=== PATIENT | female | born 1965 | race American Indian/Alaskan Native ===

== ENCOUNTER 2017-08-02 12:22 | Emergency (ER) | payer OTHER ==
[2017-08-02 12:54] VITALS: BP 130/93
[2017-08-02] MEDS ORDERED: TORADOL IM ONE (14:14)
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
== END 2017-08-02 14:27 | disposition home or self-care (01) ==
LOC: ED 12:22
DX: M54.5 Low back pain (principal); I10 Essential (primary) hypertension; E11.9 Type 2 diabetes mellitus without complications; V49.49XA Driver injured in collision with other motor vehicles in traffic accident, initial encounter; Y93.89 Activity, other specified; Y92.89 Other specified places as the place of occurrence of the external cause; Y99.8 Other external cause status
CPT/HCPCS: 96372; 99283; J1885

== ENCOUNTER 2018-10-24 16:17 | Observation (INO) | payer OTHER ==
[2018-10-24] MEDS ORDERED: NACL 0.9% 1000 ML 1,000 ML ONE (16:53)
[2018-10-24] MEDS ORDERED: NACL 0.9% 1000 ML 1,000 ML IV ONE ×3 (16:59→21:49)
--- NOTE | 2018-10-24 17:04 | Emergency Department Report ---
HPI - General Chief Complaint: Abdominal Pain Time Seen by Provider: 10/24/18 16:58 - HPI HPI: Room 5 The patient is a 53-year-old female presents with chief complaint of abdominal pain. The patient states approximately one hour ago she had sudden onset of bilateral lower quadrant abdominal pain sharp in nature. Patient states she began to get dizzy and diaphoretic. The patient states that she's been in the emergency department and passed copious flatus her pain has decreased. Patient denies any history of fever nausea vomiting or diarrhea. The patient currently gets her pain score 6-7/10. The patient states she was asymptomatic until her abdominal pain began one hour ago Location: [See above] Duration: [See above] Quality: [See above] Severity: [See above] Modifying factors: [see above] Context: [see above] Mode of transportation: [not driving] ED Past Medical Hx - Past Medical History Previous Medical History?: Yes Hx Hypertension: Yes Hx Diabetes: Yes - Surgical History Past Surgical History?: Yes Additional Surgical History: left finger amputation. - Family History Family history: no significant - Social History Smoking Status: Never Smoker Substance Use Type: Alcohol (occasional) - Medications Home Medications: Home Medications Medication Instructions Recorded Confirmed Last Taken Type metFORMIN [Glucophage] 500 mg PO BID #60 tablet 07/27/14 10/24/18 Unknown Rx ED Review of Systems ROS: Stated complaint: DIZZY Other details as noted in HPI Constitutional: denies: fever Eyes: denies: eye pain ENT: denies: throat pain Respiratory: no symptoms reported Cardiovascular: denies: chest pain Endocrine: no symptoms reported Gastrointestinal: abdominal pain. denies: nausea, vomiting, diarrhea Genitourinary: denies: dysuria Musculoskeletal: denies: back pain Neurological: denies: headache Physical Exam - Physical Exam Physical Exam: GENERAL: The patient is well-developed well-nourished female lying on stretcher not appearing to be in acute distress. [] HEENT: Normocephalic. Atraumatic. Extraocular motions are intact. Patient has moist mucous membranes. NECK: Supple. Trachea midline CHEST/LUNGS: Clear to auscultation. There is no respiratory distress noted. HEART/CARDIOVASCULAR: Regular. There is no tachycardia. There is no gallop rub or murmur. ABDOMEN: Abdomen is soft, with diffuse discomfort to palpation. Patient has normal bowel sounds. There is no abdominal distention. SKIN: There is no rash. There is no edema. There is no diaphoresis. NEURO: The patient is awake, alert, and oriented. The patient is cooperative. The patient has normal speech MUSCULOSKELETAL: There is no evidence of acute injury. ED Course - Consultations Consultation #1: 10/24/18 19:34 [facility] called 10/24/18 19:49 Case discussed with [place] physician. May keep patient here at [facility] Medical Decision Making - Lab Data Result diagrams: 10/24/18 17:06 10/24/18 17:06 Laboratory Tests 10/24/18 10/24/18 10/24/18 16:47 17:06 17:06 WBC 6.7 RBC 3.99 Hgb 11.9 Hct 36.5 MCV 92 MCH 30 MCHC 33 RDW 15.5 H Plt Count 441 H Lymph % (Auto) 46.7 H Jackson % (Auto) 8.3 H Eos % (Auto) 3.7 Baso % (Auto) 0.5 Lymph # 3.1 Jackson # 0.6 Eos # 0.2 Baso # 0.0 Seg Neutrophils % 40.8 Seg Neutrophils # 2.7 PT 13.5 INR 1.06 APTT 20.9 L VBG pH Sodium Potassium Chloride Carbon Dioxide Anion Gap BUN Creatinine Estimated GFR BUN/Creatinine Ratio Glucose Calcium Total Bilirubin AST ALT Alkaline Phosphatase Total Protein Albumin Albumin/Globulin Ratio Lipase Blood Type A POSITIVE Antibody Screen Negative 10/24/18 10/24/18 17:06 17:16 WBC RBC Hgb Hct MCV MCH MCHC RDW Plt Count Lymph % (Auto) Jackson % (Auto) Eos % (Auto) Baso % (Auto) Lymph # Jackson # Eos # Baso # Seg Neutrophils % Seg Neutrophils # PT INR APTT VBG pH 7.267 L Sodium 138 Potassium 3.5 L Chloride 102.6 Carbon Dioxide 20 L Anion Gap 19 BUN 14 Creatinine 0.8 Estimated GFR > 60 BUN/Creatinine Ratio 18 Glucose 329 H Calcium 9.2 Total Bilirubin 0.20 AST 13 ALT 9 Alkaline Phosphatase 60 Total Protein 7.5 Albumin 4.0 Albumin/Globulin Ratio 1.1 Lipase 18 Blood Type Antibody Screen - Radiology Data Radiology results: report reviewed (CT abdomen and pelvis), image reviewed (CT abdomen and pelvis) [facility] [address] [place] [address] Cat Scan Report Signed Patient: JAMES DIANA MR#: [id number] : 1965 Acct:[id number] Age/Sex: 53 / F ADM Date: 10/24/18 Loc: ED Attending Dr: Ordering Physician: OSIEL TRAVIS MD Date of Service: 10/24/18 Procedure(s): CT abdomen pelvis w con Accession Number(s): [id number] cc: OSIEL TRAVIS MD CT ABDOMEN AND PELVIS WITH CONTRAST HISTORY: Lower abdominal pain COMPARISON: None TECHNIQUE: Routine abdominal and pelvic CT exam performed following intravenous contrast administration.. All CT scans at this location are performed using CT dose reduction for ALARA by means of automated exposure control. FINDINGS: The included lung bases are clear. The liver, gallbladder, spleen, adrenal glands, kidneys, and pancreas demonstrate no acute findings. However, there is a small amount free fluid in the abdomen and pelvis. There is a large heterogeneous mass in the midline lower abdomen that measures 19.9 x 7.6 cm in greatest axial dimension. It is difficult to determine the origin of this mass given its large size. The uterus does appear to be enlarged and containing multiple fibroids but it is unclear if the larger masses arising from the uterus or from the ovaries. The included osseous structures demonstrate no aggressive appearing lytic or blastic lesions. IMPRESSION: 1. Large heterogeneous mass in the midline lower abdomen extending into the pelvis. The precise origin of this mass is indeterminate. It may be a large uterine fibroid arising from the uterus but this is not definite. It could also be a large ovarian mass (especially in light of the small amount of free fluid in the abdomen). One might consider pelvic ultrasound for further characterization, although ultimately tissue sampling may be necessary to distinguish between a large uterine fibroid versus ovarian lesion. Signer Name: Hardik Echevarria MD Signed: 10/24/2018 7:03 PM Workstation Name: [id number] Transcribed By: LANDY Dictated By: Hardik Echevarria MD Electronically Authenticated By: Hardik Echevarria MD Signed Date/Time: 10/24/181902 DD/ 57 TD/TT: - Differential Diagnosis bowel perforation, aortic dissection, AAA Critical care attestation.: If time is entered above; I have spent that time in minutes in the direct care of this critically ill patient, excluding procedure time. ED Disposition Clinical Impression: Acute abdominal pain, Abdominal mass, DKA (diabetic ketoacidoses) Disposition: DC09 OP ADMIT IP TO THIS HOSP Is pt being admited?: Yes Does the pt Need Aspirin: No Condition: Fair Instructions: Diabetic Ketoacidosis (ED), Abdominal Pain (ED) Referrals: TISH CALZADABANGOR MD YEE [Primary Care Provider] - 3-5 Days Time of Disposition: 19:49 (hospitalist notified (Dr Kang))
[2018-10-24 17:24] LABS: Basophils % (Auto) 0.5 % (0.0-1.8); Eosinophils # (Auto) 0.2 K/mm3 (0.0-0.4); Eosinophils % (Auto) 3.7 % (0.0-4.3); Hematocrit 36.5 % (30.3-42.9); Hemoglobin 11.9 gm/dl (10.1-14.3); Lymphocytes # (Auto) 3.1 K/mm3 (1.2-5.4); Lymphocytes % (Auto) 46.7 % (13.4-35.0); Mean Corpuscular HGB Conc 33 % (30-34); Mean Corpuscular Volume 92 fl (79-97); Monocytes # (Auto) 0.6 K/mm3 (0.0-0.8); Monocytes % (Auto) 8.3 % (0.0-7.3); Platelet Count 441 K/mm3 (140-440); Red Blood Count 3.99 M/mm3 (3.65-5.03); Red Cell Distribution Width 15.5 % (13.2-15.2)
[2018-10-24 17:36] LABS: INR 1.06 (0.87-1.13); Partial Thromboplastin Time 20.9 Sec. (24.2-36.6)
[2018-10-24 17:48] LABS: Alanine Aminotransferase 9 units/L (7-56); BUN/Creatinine Ratio 18; Blood Urea Nitrogen 14 mg/dL (7-17); Calcium 9.2 mg/dL (8.4-10.2); Hemolysis Index 61
--- NOTE | 2018-10-24 19:07 | Cat Scan Report ---
CT ABDOMEN AND PELVIS WITH CONTRAST HISTORY: Lower abdominal pain COMPARISON: None TECHNIQUE: Routine abdominal and pelvic CT exam performed following intravenous contrast administrat ion.. All CT scans at this location are performed using CT dose reduction for ALARA by means of autom ated exposure control. FINDINGS: The included lung bases are clear. The liver, gallbladder, spleen, adrenal glands, kidneys, and pancreas demonstrate no acute findings. However, there is a small amount free fluid in the abdomen and pelvis. There is a large heterogeneous mass in the midline lower abdomen that measures 19.9 x 7.6 cm in great est axial dimension. It is difficult to determine the origin of this mass given its large size. The u terus does appear to be enlarged and containing multiple fibroids but it is unclear if the larger mas ses arising from the uterus or from the ovaries. The included osseous structures demonstrate no aggressive appearing lytic or blastic lesions. IMPRESSION: 1. Large heterogeneous mass in the midline lower abdomen extending into the pelvis. The precise origi n of this mass is indeterminate. It may be a large uterine fibroid arising from the uterus but this i s not definite. It could also be a large ovarian mass (especially in light of the small amount of edson e fluid in the abdomen). One might consider pelvic ultrasound for further characterization, although ultimately tissue sampling may be necessary to distinguish between a large uterine fibroid versus ova theron lesion. Signer Name: Hardik Echevarria MD Signed: 10/24/2018 7:03 PM Workstation Name: [id number]
[2018-10-24] MEDS ORDERED: NORCO 5/325 PO ONE (21:49)
[2018-10-24] MEDS ORDERED: HumuLIN R ONE (22:15)
[2018-10-24] MEDS ORDERED: LANTUS SUB-Q SCH (22:23)
--- NOTE | 2018-10-24 22:49 | History and Physical Report ---
History of Present Illness Date of examination: 10/24/18 Date of admission: 10/24/18 22:22 History of present illness: 53 -year-old lady with a history of diabetes mellitus comes to the emergency room with complaint of lower abdominal pain which is described as sharp pain, intermittent over 15 minutes, intensity is 6/10, no radiation, cannot identify exacerbating factor, relieved with pain medication given in the emergency room. Also state that she felt dizzy. 2 months ago she had an MRI of the abdomen which showed that she had fibroids. In the emergency room shows him to be hypotensive, to start blood pressures in the 60s, responsive to IV fluids Review of systems Constitutional: no weight loss, chills, fever Ears, eyes, nose, mouth and throat: no nasal congestion, no nasal discharge, no sinus pressure, no vision change, no red eye. Neck: No neck pain or rigidity. Cardiovascular: no palpitations, chest pain Respiratory: no cough, shortness of breath Gastrointestinal: no hematochezia, abdominal pain Genitourinary : no frequency , no hematuria Musculoskeletal: no joint swelling or muscle ache Integumentary: no rash, no pruritis Neurological: no parathesias, no focal weakness Endocrine: no cold or heat intolerance, no polyuria or polydipsia Hematologic/Lymphatic: no easy bruising, no easy bleeding, no gland swelling Allergic/Immunologic: no urticaria, no angioedema. PAST MEDICAL HISTORY:diabetes mellitus PAST SURGICAL HISTORY: Hand surgery, finger amputation SOCIAL HISTORY: Denies alcohol, drugs, tobacco FAMILY HISTORY: Hypertension Medications and Allergies Allergies Allergy/AdvReac Type Severity Reaction Status Date / Time No Known Allergies Allergy Verified 10/24/18 16:54 Home Medications Medication Instructions Recorded Confirmed Last Taken Type metFORMIN [Glucophage] 500 mg PO BID #60 tablet 07/27/14 10/24/18 Unknown Rx Active Meds: Active Medications Enoxaparin Sodium (Lovenox) 40 mg SUB-Q QDAY@1000 JOHN Sodium Chloride (Nacl 0.9% 1000 Ml) 1,000 mls @ 150 mls/hr IV DIRECT JOHN Insulin Glargine (Lantus) 4 units SUB-Q QHS [facility] Exam - Physical Exam Narrative exam: General Apperance: The patient lying in bed, breathing comfortable HEENT: Normocephalic, atraumatic. Pupils equally round and reactive to light, EOMI, no sclericterus or JVD or thyromegaly or nodule. , no carotid bruit, mucous membranes moist, no exudate or erythema Heart: S1-S2, regular is rhythm Lungs: Clear to auscultation bilaterally, breathing comfortable Abdomen: Positive bowel sounds, soft, nontender, nondistended, no organomegaly Extremities: No edema cyanosis clubbing Skin: no rash, nodule, warm and dry Neuro: cranial nerves 2-12 intact, speech is fluent, motor/sensory intact - Constitutional Vitals: Temp Pulse Resp BP Pulse Ox 97.7 F 80 20 115/71 99 10/24/18 19:10 10/24/18 19:10 10/24/18 19:10 10/24/18 21:00 10/24/18 20:28 Results - Labs CBC & Chem 7: 10/24/18 17:06 10/24/18 17:06 Labs: Abnormal lab results 10/24/18 10/24/18 10/24/18 Range/Units 17:06 17:06 17:06 RDW 15.5 H (13.2-15.2) % Plt Count 441 H (140-440) K/mm3 Lymph % (Auto) 46.7 H (13.4-35.0) % [place] % (Auto) 8.3 H (0.0-7.3) % APTT 20.9 L (24.2-36.6) Sec. VBG pH (7.320-7.420) Potassium 3.5 L (3.6-5.0) mmol/L Carbon Dioxide 20 L (22-30) mmol/L Glucose 329 H (65-100) mg/dL POC Glucose (70-105) 10/24/18 10/24/18 Range/Units 17:16 22:01 RDW (13.2-15.2) % Plt Count (140-440) K/mm3 Lymph % (Auto) (13.4-35.0) % [place] % (Auto) (0.0-7.3) % APTT (24.2-36.6) Sec. VBG pH 7.267 L (7.320-7.420) Potassium (3.6-5.0) mmol/L Carbon Dioxide (22-30) mmol/L Glucose (65-100) mg/dL POC Glucose 381 H (70-105) - Imaging and Cardiology EKG: image reviewed CT scan - abdomen: report reviewed CT scan - pelvis: report reviewed Assessment and Plan Assessment Hypotension, unclear etiology Uterine mass most likely Fibroids Diabetes uncontrolled Plan Admit to Medicine Start IV fluid, obtain urinalysis, chest x-ray,cardiac enzymes, consult [employer] Check fingersticks and initiate insulin sliding scale DVT prophylaxis
[2018-10-24] MEDS ORDERED: ZOFRAN IV PRN (22:53)
[2018-10-24] MEDS ORDERED: TYLENOL PO PRN (22:53)
[2018-10-24] MEDS ORDERED: SODIUM CHLORIDE FLUSH SYRINGE 10 ML IV PRN (22:53)
[2018-10-24] MEDS ORDERED: D50W (25GM) Syringe IV PRN (22:55)
[2018-10-24] MEDS ORDERED: HumuLIN R SUB-Q ONE (22:55)
--- NOTE | 2018-10-24 22:59 | XRay Report ---
CHEST 1 VIEW INDICATION: hypotn, dizziness, blurred vision. COMPARISON: None. FINDINGS: Support devices: None. Heart: Normal. Lungs/Pleura: No acute pulmonary or pleural findings. IMPRESSION: 1. No acute findings. Signer Name: Anton Lui MD Signed: 10/24/2018 10:55 PM Workstation Name: [id number]
[2018-10-24 23:26] LABS: Bilirubin,Urine NEG (Negative); Blood,Urine MOD (Negative); Color,Urine Yellow (Yellow); Mucus,Urine FEW /HPF; Protein,Urine <15 mg/dL mg/dL (Negative); Urobilinogen,Urine < 2.0 mg/dL (<2.0)
[2018-10-25] MEDS ORDERED: ROCEPHIN/NS 1 GM/50 ML 1 GM/50 ML BAG IV SCH (00:28)
[2018-10-25] MEDS: NACL 0.9% 1000 ML 1,000 ML IV SCH ×2 (01:28→09:47)
[2018-10-25] MEDS: MORPHINE IV PRN ×2 (01:35→11:28)
[2018-10-25 05:13] LABS: Basophils % (Auto) 0.2 % (0.0-1.8); Eosinophils # (Auto) 0.1 K/mm3 (0.0-0.4); Eosinophils % (Auto) 0.6 % (0.0-4.3); Hematocrit 25.7 % (30.3-42.9); Hemoglobin 8.6 gm/dl (10.1-14.3); Lymphocytes # (Auto) 1.6 K/mm3 (1.2-5.4); Lymphocytes % (Auto) 14.4 % (13.4-35.0); Mean Corpuscular HGB Conc 34 % (30-34); Mean Corpuscular Volume 91 fl (79-97); Monocytes # (Auto) 0.6 K/mm3 (0.0-0.8); Platelet Count 291 K/mm3 (140-440); Red Blood Count 2.83 M/mm3 (3.65-5.03); Red Cell Distribution Width 15.1 % (13.2-15.2)
[2018-10-25 05:22] LABS: BUN/Creatinine Ratio 20; Blood Urea Nitrogen 12 mg/dL (7-17); Calcium 7.9 mg/dL (8.4-10.2); Hemolysis Index 2
[2018-10-25 05:36] LABS: Creatine Kinase MB < 1.0 ng/mL (0.0-4.0)
[2018-10-25] MEDS: HumaLOG SUB-Q SCH ×2 (09:47→13:26)
[2018-10-25] MEDS ORDERED: SODIUM CHLORIDE FLUSH SYRINGE 10 ML IV SCH (10:00)
[2018-10-25] MEDS ORDERED: LOVENOX SUB-Q SCH ×2 (10:00)
--- NOTE | 2018-10-25 12:42 | Consultation ---
History of Present Illness Consult date: 10/25/18 Reason for consult: pelvic pain, pelvic mass History of present illness: 53y/o female who presented to the ED with the complaint of dizziness and pelvic pain. The patient has a known history of uterine fibroids. She reports pelvic and leg pain that occurs one week prior to menses. She states her menses is regular and normal. Past History Past Medical History: diabetes, other (uterine fibroids) Medications and Allergies Allergies Allergy/AdvReac Type Severity Reaction Status Date / Time No Known Allergies Allergy Verified 10/24/18 16:54 Home Medications Medication Instructions Recorded Confirmed Last Taken Type metFORMIN [Glucophage] 500 mg PO BID #60 tablet 07/27/14 10/24/18 Unknown Rx Active Meds: Active Medications Acetaminophen (Tylenol) 650 mg PO Q4H PRN PRN Reason: Pain MILD(1-3)/Fever >100.5/MCBRIDE Dextrose (D50w (25gm) Syringe) 50 ml IV PRN PRN PRN Reason: Hypoglycemia Enoxaparin Sodium (Lovenox) 40 mg SUB-Q QDAY@1000 JOHN Last Admin: 10/25/18 09:46 Dose: 40 mg Documented by: Sodium Chloride (Nacl 0.9% 1000 Ml) 1,000 mls @ 150 mls/hr IV DIRECT JOHN Last Admin: 10/25/18 09:47 Dose: 150 mls/hr Documented by: Ceftriaxone Sodium (Rocephin/Ns 1 Gm/50 Ml) 1 gm in 50 mls @ 100 mls/hr IV Q24HR@2200 JOHN; Protocol Last Admin: 10/25/18 01:27 Dose: 100 mls/hr Documented by: Insulin Glargine (Lantus) 4 units SUB-Q QHS [facility], 1928–1983 Last Admin: 10/24/18 23:57 Dose: 4 units Documented by: Insulin Human Lispro (Humalog) 0 unit SUB-Q ACHS [facility], 1928–1983; Protocol Last Admin: 10/25/18 09:47 Dose: 4 unit Documented by: Morphine Sulfate (Morphine) 2 mg IV Q4H PRN PRN Reason: Pain, Moderate (4-6) Last Admin: 10/25/18 11:28 Dose: 2 mg Documented by: Ondansetron HCl (Zofran) 4 mg IV Q8H PRN PRN Reason: Nausea And Vomiting Sodium Chloride (Sodium Chloride Flush Syringe 10 Ml) 10 ml IV BID JOHN Last Admin: 10/25/18 11:29 Dose: 10 ml Documented by: Sodium Chloride (Sodium Chloride Flush Syringe 10 Ml) 10 ml IV PRN PRN PRN Reason: LINE FLUSH Last Admin: 10/25/18 01:28 Dose: 10 ml Documented by: Review of Systems All systems: negative Genitourinary: pelvic pain - Vital Signs Vital signs: Vital Signs Temp Pulse Resp BP Pulse Ox 97.5 F L 61 98 H 66/42 98 10/24/18 17:27 10/24/18 17:27 10/24/18 17:27 10/24/18 17:27 10/24/18 17:27 Temp Pulse Resp BP Pulse Ox 97.5 F L 77 18 132/75 99 10/25/18 05:09 10/25/18 05:09 10/25/18 05:09 10/25/18 05:09 10/25/18 05:09 - Physical Exam Breasts: Positive: deferred Cardiovascular: Regular rate Lungs: Positive: Clear to auscultation Results Result Diagrams: 10/25/18 04:57 10/25/18 04:57 Abnormal lab results 10/24/18 10/24/18 10/24/18 Range/Units 17:06 17:06 17:06 WBC (4.5-11.0) K/mm3 RBC (3.65-5.03) M/mm3 Hgb (10.1-14.3) gm/dl Hct (30.3-42.9) % RDW 15.5 H (13.2-15.2) % Plt Count 441 H (140-440) K/mm3 Lymph % (Auto) 46.7 H (13.4-35.0) % [place] % (Auto) 8.3 H (0.0-7.3) % Seg Neutrophils % (40.0-70.0) % Seg Neutrophils # (1.8-7.7) K/mm3 APTT 20.9 L (24.2-36.6) Sec. VBG pH (7.320-7.420) Potassium 3.5 L (3.6-5.0) mmol/L Carbon Dioxide 20 L (22-30) mmol/L Creatinine (0.7-1.2) mg/dL Glucose 329 H (65-100) mg/dL POC Glucose (70-105) Calcium (8.4-10.2) mg/dL Ur Specific [place] (1.003-1.030) Urine WBC (Auto) (0.0-6.0) /[facility] 10/24/18 10/24/18 10/24/18 Range/Units 17:16 22:01 22:20 WBC (4.5-11.0) K/mm3 RBC (3.65-5.03) M/mm3 Hgb (10.1-14.3) gm/dl Hct (30.3-42.9) % RDW (13.2-15.2) % Plt Count (140-440) K/mm3 Lymph % (Auto) (13.4-35.0) % [place] % (Auto) (0.0-7.3) % Seg Neutrophils % (40.0-70.0) % Seg Neutrophils # (1.8-7.7) K/mm3 APTT (24.2-36.6) Sec. VBG pH 7.267 L (7.320-7.420) Potassium (3.6-5.0) mmol/L Carbon Dioxide (22-30) mmol/L Creatinine (0.7-1.2) mg/dL Glucose (65-100) mg/dL POC Glucose 381 H (70-105) Calcium (8.4-10.2) mg/dL Ur Specific [place] 1.040 H (1.003-1.030) Urine WBC (Auto) 10.0 H (0.0-6.0) /[facility] 10/25/18 10/25/18 10/25/18 Range/Units 00:02 04:57 04:57 WBC 11.2 H (4.5-11.0) K/mm3 RBC 2.83 L (3.65-5.03) M/mm3 Hgb 8.6 L D (10.1-14.3) gm/dl Hct 25.7 L D (30.3-42.9) % RDW (13.2-15.2) % Plt Count (140-440) K/mm3 Lymph % (Auto) (13.4-35.0) % [place] % (Auto) (0.0-7.3) % Seg Neutrophils % 79.8 H (40.0-70.0) % Seg Neutrophils # 8.9 H (1.8-7.7) K/mm3 APTT (24.2-36.6) Sec. VBG pH (7.320-7.420) Potassium (3.6-5.0) mmol/L Carbon Dioxide (22-30) mmol/L Creatinine 0.6 L (0.7-1.2) mg/dL Glucose 217 H (65-100) mg/dL POC Glucose 340 H (70-105) Calcium 7.9 L (8.4-10.2) mg/dL Ur Specific [place] (1.003-1.030) Urine WBC (Auto) (0.0-6.0) /H[facility] 10/25/18 10/25/18 Range/Units 07:55 11:31 WBC (4.5-11.0) K/mm3 RBC (3.65-5.03) M/mm3 Hgb (10.1-14.3) gm/dl Hct (30.3-42.9) % RDW (13.2-15.2) % Plt Count (140-440) K/mm3 Lymph % (Auto) (13.4-35.0) % [place] % (Auto) (0.0-7.3) % Seg Neutrophils % (40.0-70.0) % Seg Neutrophils # (1.8-7.7) K/mm3 APTT (24.2-36.6) Sec. VBG pH (7.320-7.420) Potassium (3.6-5.0) mmol/L Carbon Dioxide (22-30) mmol/L Creatinine (0.7-1.2) mg/dL Glucose (65-100) mg/dL POC Glucose 230 H 198 H (70-105) Calcium (8.4-10.2) mg/dL Ur Specific [place] (1.003-1.030) Urine WBC (Auto) (0.0-6.0) /HPF All other labs normal. Assessment and Plan - Patient Problems (1) Abdominal mass Current Visit: Yes Status: Acute Plan to address problem: would recommend that a pelvic ultrasound be performed however this can be performed as an outpatient treatment options discussed with patient would not recommend any further management at this time patient given contact information to schedule an outpatient visit patient can be discharged home (2) Acute abdominal pain Current Visit: Yes Status: Acute
--- NOTE | 2018-10-25 14:53 | Discharge Summary ---
Providers - Providers Date of Admission: 10/24/18 22:22 Date of discharge: 10/25/18 Attending physician: FRANKY RODGERS 10/24/18 22:56 Consult to Physician [CONS] Routine Comment: Consulting Provider: ZAIRE DURAN Physician Instructions: Reason For Exam: uterine mass [facility] Condition: Stable Hospital course: Discharge Diagnoses: Hypotension, resolved Abdominal pains Uterine mass most likely Fibroids Diabetes uncontrolled, normal AG UTI Disposition: -01 TO HOME OR SELFCARE Time spent for discharge: 34 minutes Core Measure Documentation - Palliative Care Palliative Care/ Comfort Measures: Not Applicable - Core Measures Any of the following diagnoses?: none - VTE Discharge Requirements Deep Vein Thrombosis/Pulmonary Embolism Present on Admission: No Has pt received <5 days of overlap therapy or INR<2.0: No Anticoagulant overlap therapy prescribed at discharge: No Contraindication No Overlap Therapy order at DC: Not Indicated Exam - Physical Exam Narrative exam: Gen: WDWN, NAD, Awake, Alert, Orientated HEENT: NCAT, EOMI, PERRL, OP Clear Neck: supple, no adenopathy, no thyromegaly, no JVD CVS/Heart: RRR, normal S1S2, pulses present bilaterally Chest/Lungs: CTA B, Symmetrical chest expansion, good air entry bilaterally GI/Abdomen: soft, NTND, good bowel sounds, no guarding or rebound /Bladder: no suprapubic tenderness, no CVA or paraspinal tenderness Extermity/Skin: no c/c/e, no obvious rash MSK: FROM x 4 Neuro: CN 2-12 grossly intact, no new focal deficits Psych: calm - Constitutional Vitals: Temp Pulse Resp BP Pulse Ox 98.2 F 68 16 116/69 97 10/25/18 11:57 10/25/18 11:57 10/25/18 11:57 10/25/18 11:57 10/25/18 11:57 Plan Activity: other (no strenous activity unless cleared by PCP) Diet: low salt, diabetic Special Instructions: record daily BP diary Follow up with: [facility] [Provider Group] - 7 Days Prescriptions: Ciprofloxacin HCl [Ciprofloxacin TAB] 500 mg PO BID #10 tab
[2018-10-25 15:17] VITALS: BP 108/58
== END 2018-10-25 17:21 | disposition home or self-care (01) ==
LOC: ED 16:17 → INTOOBSV 22:22 → 3A 22:22
PROVIDERS: ADMIT Internal Medicine; ATTEND Internal Medicine
DX: I95.9 Hypotension, unspecified (principal); N85.8 Other specified noninflammatory disorders of uterus; E11.9 Type 2 diabetes mellitus without complications; R42 Dizziness and giddiness; R19.00 Intra-abdominal and pelvic swelling, mass and lump, unspecified site; R10.30 Lower abdominal pain, unspecified; N39.0 Urinary tract infection, site not specified
CPT/HCPCS: 36415; 71045; 74177; 80048; 80053; 81001; 82550; 82553; 82805; 82962; 83690; 84484; 85025; 85610; 85730; 86850; 86900; 86901; 87086; 96361; 96365; 96372; 96375; 96376; 99284; G0378; J0696; J1650; J2270; J7030; Q9967; 96360; J1815